=== PATIENT | female | born 2000 | race Hispanic/Latino ===

== ENCOUNTER 2025-04-24 16:55 | Emergency (ER) | payer OTHER, SELFPAY ==
[~2025-04-24] VITALS: Ht 154.9 cm; Wt 65.3 kg
[2025-04-24 18:18] LABS: BASO # 0.1 10^3/uL (0.0-0.2); BASO % 0.8 % (0.0-1.0); EOS # 0.5 10^3/uL (0.0-0.5); EOS % 6.3 % (0.0-3.0); HEMATOCRIT 39.3 % (36.0-47.0); HEMOGLOBIN 12.8 g/dl (12.0-15.5); LYMPH % 40.3 % (24.0-44.0); MEAN CORPUSCULAR HEMOGLOBIN 26.1 pg (27.0-33.0); MEAN CORPUSCULAR HGB CONC 32.6 g/dl (32.0-36.5); MEAN CORPUSCULAR VOLUME 80.2 fl (80.0-96.0); MONO # 0.4 10^3/uL (0.0-0.8); MONO % 5.4 % (2.0-8.0); NEUTROPHILS # 3.4 10^3/uL (1.5-8.5); NEUTROPHILS % 46.8 % (36.0-66.0); PLATELET COUNT, AUTOMATED 331 10^3/uL (150-450); WHITE BLOOD COUNT 7.4 10^3/uL (4.0-10.0)
[2025-04-24 18:32] LABS: HCG, SERUM QUALITATIVE NEGATIVE (NEGATIVE)
[2025-04-24 18:33] LABS: ALBUMIN 4.2 G/DL (3.2-5.2); ALKALINE PHOSPHATASE 66 U/L (35-104); ALT/SGPT 28 U/L (7.0-40); AST/SGOT 54 U/L (<34); BILIRUBIN,DIRECT < 0.1 MG/DL (<0.4); BILIRUBIN,TOTAL 0.3 MG/DL (0.3-1.2); LIPASE 61 U/L (12-53); TOTAL PROTEIN 8.3 G/DL (5.7-8.2)
[2025-04-24 19:10] LABS: BLOOD UREA NITROGEN 14 MG/DL (9-23); CALCIUM LEVEL 9.3 MG/DL (8.5-10.1); CARBON DIOXIDE LEVEL 23 MMOL/L (20-31); CHLORIDE LEVEL 103 MMOL/L (98-107); GLOMERULAR FILTRATION RATE > 90.0 (>60); GLUCOSE, FASTING 85 MG/DL (60-100); POTASSIUM SERUM 4.9 MMOL/L (3.5-5.1); SODIUM LEVEL 138 MMOL/L (136-145)
[2025-04-24] MEDS: ONDANSETRON 4MG 2ML VIAL IV ONE (20:10)
[2025-04-24] MEDS: NS (Normal Saline) 0.9% 1,000 ML IV ONE (20:10)
[2025-04-24] MEDS: KETOROLAC 30 MG/ML 1 ML VIAL IV ONE (20:11)
[2025-04-24 21:20] LABS: KETONE, URINE AUTO RFX NEGATIVE (NEGATIVE); LEUKOCYTE ESTERASE UR AUTO RFX NEGATIVE (NEGATIVE); MUCUS, URINE RFX SMALL (NEGATIVE); NITRITE, URINE AUTO RFX NEGATIVE (NEGATIVE); RBC, URINE AUTO RFX 0 /HPF (0-3); SQUAM EPITHELIAL CELL UR AURFX 2 /HPF (0-6); WBC, URINE AUTO RFX 0 /HPF (0-3)
[2025-04-24 22:10] VITALS: BP 114/52; TEMP 98; O2SAT 99
[2025-05-16] MEDS ORDERED: FERR1TAB8 PO (09:56)
== END 2025-04-24 22:27 | disposition home or self-care (01) ==
LOC: M ED 16:55
DX: R10.9 Unspecified abdominal pain (principal); Z88.5 Allergy status to narcotic agent
CPT/HCPCS: 76856; 80048; 80076; 81001; 83690; 84703; 85025; 93976; 96361; 96374; 96375; 99284; J1885; J2405

== ENCOUNTER 2025-05-20 16:22 | Outpatient (CLI) | payer OTHER ==
[~2025-05-20 16:22] MED LIST: FERR1TAB8 PO
[2025-05-20 16:45] VITALS: BP 116/55
== END 2025-05-20 16:55 ==
LOC: M INFU 16:22
PROVIDERS: ATTEND Internal Medicine Infectious Disease
DX: Z45.2 Encounter for adjustment and management of vascular access device (principal)

== ENCOUNTER → 2025-06-02 | Outpatient (CLI) | payer OTHER ==
[2025-06-02 13:17] LABS: BASO # 0.0 10^3/uL (0.0-0.2); BASO % 0.5 % (0.0-1.0); EOS # 0.3 10^3/uL (0.0-0.5); EOS % 6.8 % (0.0-3.0); LYMPH # 1.8 10^3/uL (1.5-5.0); LYMPH % 43.0 % (24.0-44.0); MONO # 0.2 10^3/uL (0.0-0.8); MONO % 5.6 % (2.0-8.0); NEUTROPHILS # 1.8 10^3/uL (1.5-8.5); NEUTROPHILS % 43.6 % (36.0-66.0); PLATELET COUNT, AUTOMATED 299 10^3/uL (150-450)
[2025-06-02 13:19] LABS: ALT/SGPT 24 U/L (7.0-40); AST/SGOT 18 U/L (<34); C REACTIVE PROTEIN QUANTITATIV < 0.50 MG/DL (<1.0); CALCIUM LEVEL 9.5 MG/DL (8.5-10.1); CARBON DIOXIDE LEVEL 27 MMOL/L (20-31); CHLORIDE LEVEL 103 MMOL/L (98-107); CREATININE FOR GFR 0.61 MG/DL (0.55-1.30); GLOMERULAR FILTRATION RATE > 90.0 (>60); POTASSIUM SERUM 4.4 MMOL/L (3.5-5.1); SODIUM LEVEL 141 MMOL/L (136-145)
== END ==
LOC: M PLALAB 09:54
PROVIDERS: ATTEND Internal Medicine Infectious Disease
DX: G03.9 Meningitis, unspecified (principal)

== ENCOUNTER 2025-08-05 12:49 | Inpatient (IN) | payer OTHER ==
[~2025-08-05] VITALS: Ht 162.6 cm; Wt 70.0 kg
[2025-08-05] MEDS: [UNRECOGNIZED DRUG - OTHER] IV ONE (13:53)
[2025-08-05] MEDS: ACETAMINOPHEN *IV* 1,000 MG in IV 1 EA IV ONE ×2 (13:53→19:22)
[2025-08-05] MEDS: NS 0.9% IV ONE (13:53)
[2025-08-05 14:05] LABS: BASO # 0.0 10^3/uL (0.0-0.2); BASO % 0.1 % (0.0-1.0); EOS # 0.0 10^3/uL (0.0-0.5); EOS % 0.0 % (0.0-3.0); LYMPH # 0.6 10^3/uL (1.5-5.0); LYMPH % 4.8 % (24.0-44.0); MONO # 0.3 10^3/uL (0.0-0.8); MONO % 2.7 % (2.0-8.0); NEUTROPHILS # 11.4 10^3/uL (1.5-8.5); NEUTROPHILS % 91.9 % (36.0-66.0); PLATELET COUNT, AUTOMATED 316 10^3/uL (150-450)
[2025-08-05 14:32] LABS: C REACTIVE PROTEIN QUANTITATIV 6.15 MG/DL (<1.0); HCG, SERUM QUALITATIVE NEGATIVE (NEGATIVE)
[2025-08-05 14:33] LABS: ALT/SGPT 17 U/L (7.0-40); AST/SGOT 14 U/L (<34); CALCIUM LEVEL 9.3 MG/DL (8.5-10.1); CARBON DIOXIDE LEVEL 23 MMOL/L (20-31); CHLORIDE LEVEL 103 MMOL/L (98-107); CREATININE FOR GFR 0.78 MG/DL (0.55-1.30); GLOMERULAR FILTRATION RATE > 90.0 (>60); POTASSIUM SERUM 4.0 MMOL/L (3.5-5.1); SODIUM LEVEL 137 MMOL/L (136-145)
[2025-08-05] MEDS ORDERED: ISOVUE-370 76% 100 ML VIAL As Ordered ONE (15:05)
[2025-08-05] MEDS: KETOROLAC 30 MG/ML 1 ML VIAL IV ONE (15:44)
[2025-08-05 15:45] LABS: APPEARANCE, URINE HAZY (CLEAR); BACTERIA, URINE AUTO 1+ (NEGATIVE); BILIRUBIN, URINE AUTO NEGATIVE (NEGATIVE); BLOOD, URINE BLOOD NEGATIVE (NEGATIVE); GLUCOSE, URINE (UA) AUTO NEGATIVE (NEGATIVE); KETONE, URINE AUTO NEGATIVE (NEGATIVE); LEUKOCYTE ESTERASE, URINE AUTO NEGATIVE (NEGATIVE); MUCUS, URINE SMALL (NEGATIVE); NITRITE, URINE AUTO NEGATIVE (NEGATIVE); PROTEIN, URINE AUTO NEGATIVE (NEGATIVE); RBC, URINE AUTO 0 /HPF (0-3); SPECIFIC GRAVITY URINE AUTO 1.026 (1.002-1.035); SQUAMOUS EPITHELIAL CELL UR AU 6 /HPF (0-6); UROBILINOGEN, URINE AUTO 0.2 mg/dL (0.0-2.0); WBC, URINE AUTO 3 /HPF (0-3)
[2025-08-05] MEDS: NS (Normal Saline) 0.9% 1,000 ML IV ONE (16:40)
[2025-08-05] MEDS ORDERED: FERR325T3 PO (17:30)
[2025-08-05] MEDS ORDERED: HOME MED LIST COMPLETE! XX SCH (17:30)
[2025-08-05] MEDS ORDERED: ACETAMINOPHEN 325 MG TAB PO ONE (19:00)
[2025-08-05] MEDS: LevoFLOXacin IV 750 MG in IV 1 EA IV ONE (20:15)
[2025-08-06] VITALS (8 sets, daily range): BP systolic 121–140; BP diastolic 72–95; TEMP 98.6–101.2; O2SAT 91–98
[2025-08-06] MEDS: D5W/0.9% SODIUM CHLORIDE 1,000 ML IV SCH (01:37)
[2025-08-06] MEDS: VANCOMYCIN 125MG CAPSULE PO SCH (02:25)
[2025-08-06] MEDS: ACETAMINOPHEN 325 MG TAB PO PRN ×2 (02:47→21:05)
[2025-08-06] MEDS ORDERED: metroNIDAZOLE 500 MG in IV 1 EA IV SCH (03:00)
[2025-08-06] MEDS: ONDANSETRON 4MG 2ML VIAL IV PRN (03:33)
[2025-08-06] MEDS: ACETAMINOPHEN *IV* 1,000 MG in IV 1 EA IV PRN (03:33)
[2025-08-06] MEDS: ENOXAPARIN 40 MG/0.4 ML SYRINGE (J1650 PER 10MG) SC SCH (08:26)
[2025-08-06] MEDS: NS (Normal Saline) 0.9% 1,000 ML IV SCH (08:26)
[2025-08-06] MEDS: PANTOPRAZOLE 40MG VIAL IV SCH (08:26)
[2025-08-06] MEDS ORDERED: LevoFLOXacin IV 750 MG in IV 1 EA IV SCH (09:00)
[2025-08-06 09:17] LABS: INR 1.39
[2025-08-06] MEDS: FIDAXOMICIN 200 MG TAB PO SCH (11:47)
[2025-08-06] MEDS ORDERED: RIVAROXABAN 10MG TAB PO SCH (18:00)
[2025-08-06] MEDS ORDERED: LevoFLOXacin IV 750 MG in IV 1 EA IV ONE (20:00)
[2025-08-06] MEDS: LevoFLOXacin IV 750 MG in IV 1 EA IV SCH (20:56)
[2025-08-07 04:46] VITALS: BP 115/73; TEMP 98.7; O2SAT 100
[2025-08-07 07:17] LABS: PLATELET COUNT, AUTOMATED 218 10^3/uL (150-450)
[2025-08-07 07:56] LABS: CALCIUM LEVEL 8.1 MG/DL (8.5-10.1); CARBON DIOXIDE LEVEL 24 MMOL/L (20-31); CHLORIDE LEVEL 107 MMOL/L (98-107); CREATININE FOR GFR 0.63 MG/DL (0.55-1.30); GLOMERULAR FILTRATION RATE > 90.0 (>60); MAGNESIUM LEVEL 1.7 MG/DL (1.8-2.4); POTASSIUM SERUM 3.3 MMOL/L (3.5-5.1); SODIUM LEVEL 138 MMOL/L (136-145)
[2025-08-07] MEDS: FAMOTIDINE 20 MG TAB PO SCH (08:21)
[2025-08-07 14:00] VITALS: BP 134/88; TEMP 98.2; O2SAT 99
[2025-08-07] MEDS ORDERED: LevoFLOXacin IV 500 MG in IV 1 EA IV SCH (15:00)
[2025-08-07] MEDS: POTASSIUM CHLORIDE 10MEQ SR TABLET PO ONE ×2 (15:04→16:29)
[2025-08-07] MEDS: MAG SULF 1GM/100ML (MAG RUN) 1 GM in IV 1 EA IV SCH (15:04)
[2025-08-07] MEDS: VANCOMYCIN HCL 1,500 MG, VIAL MATE ADAPTER 1 EACH in NS 500 ML IV ONE (18:14)
[2025-08-07] MEDS: MAGNESIUM OXIDE 400 MG TAB PO SCH (20:30)
[2025-08-07] MEDS: LevoFLOXacin IV 500 MG in IV 1 EA IV SCH (20:31)
[2025-08-07 21:22] VITALS: BP 131/69; TEMP 98.2; O2SAT 100
[2025-08-07] MEDS: LR 1,000 ML IV SCH (21:38)
[2025-08-08] MEDS ORDERED: VANCOMYCIN HCL 1,000 MG, VIAL MATE ADAPTER 1 EACH in NS 250 ML IV SCH (02:00)
[2025-08-08] MEDS: RAMELTEON 8 MG TAB PO PRN (02:53)
[2025-08-08 05:51] VITALS: BP 109/73; TEMP 98; O2SAT 99
[2025-08-08 06:27] LABS: PLATELET COUNT, AUTOMATED 261 10^3/uL (150-450)
[2025-08-08 07:09] LABS: CALCIUM LEVEL 8.4 MG/DL (8.5-10.1); CARBON DIOXIDE LEVEL 22 MMOL/L (20-31); CHLORIDE LEVEL 110 MMOL/L (98-107); CREATININE FOR GFR 0.58 MG/DL (0.55-1.30); GLOMERULAR FILTRATION RATE > 90.0 (>60); MAGNESIUM LEVEL 1.9 MG/DL (1.8-2.4); POTASSIUM SERUM 4.2 MMOL/L (3.5-5.1); SODIUM LEVEL 141 MMOL/L (136-145)
[2025-08-08 14:00] VITALS: BP 110/71; TEMP 97.8; O2SAT 98
[2025-08-08 21:12] VITALS: BP 126/83; TEMP 97.7; O2SAT 99
[2025-08-09 06:32] LABS: PLATELET COUNT, AUTOMATED 348 10^3/uL (150-450)
[2025-08-09 06:45] LABS: CALCIUM LEVEL 8.6 MG/DL (8.5-10.1); CARBON DIOXIDE LEVEL 25 MMOL/L (20-31); CHLORIDE LEVEL 106 MMOL/L (98-107); CREATININE FOR GFR 0.58 MG/DL (0.55-1.30); GLOMERULAR FILTRATION RATE > 90.0 (>60); POTASSIUM SERUM 3.8 MMOL/L (3.5-5.1); SODIUM LEVEL 142 MMOL/L (136-145)
[2025-08-09 07:05] VITALS: BP 100/64; TEMP 97; O2SAT 99
[2025-08-09 14:00] VITALS: BP 125/77; TEMP 98.5; O2SAT 99
[2025-08-09 21:05] VITALS: BP 122/80; TEMP 98.1; O2SAT 99
[2025-08-10 05:27] VITALS: BP 113/71; TEMP 97.5; O2SAT 99
[2025-08-10] MEDS ORDERED: FIDA200TA PO (09:25)
[2025-08-10] MEDS ORDERED: RISATAB3 PO (09:25)
[2025-08-10] MEDS ORDERED: LEVO1TAB39 PO (09:25)
== END 2025-08-10 10:15 | disposition home or self-care (01) | DRG 371 ==
LOC: M ED 12:49 → M ED INP 08-06 00:24 → M MS5PR 08-06 02:31
PROVIDERS: ADMIT Student in an Organized Health Care Education/Training Program; ATTEND Student in an Organized Health Care Education/Training Program
DX: A04.72 Enterocolitis due to Clostridium difficile, not specified as recurrent (principal); A41.59 Other Gram-negative sepsis; E87.6 Hypokalemia; Z88.5 Allergy status to narcotic agent; E83.42 Hypomagnesemia; Z79.899 Other long term (current) drug therapy; B96.1 Klebsiella pneumoniae [K. pneumoniae] as the cause of diseases classified elsewhere

== ENCOUNTER → 2025-09-13 | Outpatient (CLI) | payer OTHER ==
[~2025-09-13] MED LIST changes: +FERR325T3 PO; +FIDA200TA PO; +LEVO1TAB39 PO; +RISATAB3 PO
== END ==
LOC: M PLALAB 09:56
PROVIDERS: ATTEND Nurse Practitioner Adult Health
DX: Z32.01 Encounter for pregnancy test, result positive (principal)

== ENCOUNTER → 2025-09-21 | Outpatient (CLI) | payer OTHER | LOC: M SLEEP HO 09-15 12:04 | PROVIDERS: ATTEND Nurse Practitioner Adult Health | DX: G47.33 Obstructive sleep apnea (adult) (pediatric) (principal) ==

== ENCOUNTER → 2025-10-10 | Outpatient (CLI) | payer OTHER | LOC: M PLALAB 15:42 | PROVIDERS: ATTEND Student in an Organized Health Care Education/Training Program | DX: O03.9 Complete or unspecified spontaneous abortion without complication (principal) ==